=== PATIENT | female | born 1995 | race Caucasian/White ===

== ENCOUNTER 2021-03-28 12:48 | Outpatient (CLI) | payer BC ==
[2021-03-29 01:51] LABS: SARS-CoV-2 PCR by NAA Not Detected (NotDetected)
== END 2021-03-28 12:49 | disposition home or self-care (01) ==
LOC: CSHLAB 12:48
PROVIDERS: ATTEND Advanced Practice Midwife
DX: Z20.822 Contact with and (suspected) exposure to COVID-19 (principal)
CPT/HCPCS: 87635; U0003; U0005

== ENCOUNTER 2021-04-01 19:15 | Inpatient (IN) | payer BC ==
[~2021-04-01 19:15] MED LIST: Bupivacaine 0.25% HCL 30 ML VIAL ONE
[2021-04-01] MEDS: Lactated Ringer's 1,000 ML IV SCH (22:45)
[2021-04-01] MEDS ORDERED: hydrALAZINE 20 MG/ML VIAL SLOW IVP PRN (23:06)
[2021-04-01] MEDS ORDERED: Misoprostol 200 MCG TAB PR PRN (23:06)
[2021-04-01] MEDS ORDERED: Butorphanol Tartrate 1 MG/ML VIAL SLOW IVP PRN (23:06)
[2021-04-01] MEDS ORDERED: Methylergonovine 0.2 MG/ML VIAL IM PRN (23:06)
[2021-04-01] MEDS ORDERED: Ibuprofen 800 MG TAB PO PRN (23:06)
[2021-04-01] MEDS ORDERED: HYDROcodone/Acetaminophen 5/325 mg Tablet PO PRN ×2 (23:06)
[2021-04-01] MEDS ORDERED: Ondansetron PF 4 MG/2 ML Vial IVP PRN (23:06)
[2021-04-01] MEDS ORDERED: Lidocaine 1% (PF) 30 ML VIAL SC PRN (23:06)
[2021-04-01] MEDS ORDERED: Promethazine HCl 25 MG/ML VIAL IM PRN (23:06)
[2021-04-01] MEDS: Misoprostol 100 MCG TAB VAG SCH (23:36)
[2021-04-01] MEDS ORDERED: Misoprostol 100 MCG TAB ONE (23:37)
[2021-04-01] MEDS ORDERED: NS w/ Oxytocin 30 units 500 ML IV PRN (23:39)
[2021-04-01 23:41] LABS: Hemoglobin 12.4 g/dL (12.0-15.5); Mean Corpuscular Hemoglobin 29.2 pg (27.0-33.0); Mean Corpuscular Volume 88.7 fl (81.6-98.3); Mean Platelet Volume 10.9 fl (7.4-10.4); Platelet Count 202 10x3/uL (150-450); RBC Distribution Width 13.2 % (11.5-14.5); Red Blood Cell (RBC) Count 4.24 10x6/uL (3.90-5.03); White Blood Cell (WBC) Count 10.1 10x3/uL (3.5-10.5)
[2021-04-02 00:12] LABS: Hep B Surf Ag Non-Reactive S/CO (NonReactive); Syphilis Antibody Nonreactive (Nonreactive); Syphilis Antibody Index 0.02 S/CO (<1.00 Non-Reactive)
[2021-04-02 00:17] VITALS: BMI 39.3
[2021-04-02 00:38] LABS: HBSAg Index 0.12 S/CO (0-0.99)
[2021-04-02] MEDS: Misoprostol 100 MCG TAB VAG SCH ×2 (02:47→21:19)
[2021-04-02] MEDS ORDERED: Misoprostol 100 MCG TAB PO SCH (05:50)
[2021-04-02] MEDS ORDERED: Fentanyl 4 mcg/Bup 0.1% Cadd 100 ML ONE (08:04)
[2021-04-02] MEDS: Lactated Ringer's 1,000 ML IV SCH ×2 (09:00→10:44)
[2021-04-02] MEDS ORDERED: Acetaminophen 325 MG TAB PO PRN (09:50)
[2021-04-02] MEDS ORDERED: ePHEDrine 50 MG/ML VIAL SLOW IVP PRN (09:50)
[2021-04-02] MEDS ORDERED: Naloxone HCl 0.4 mg/ml Vial IVP PRN ×2 (09:50)
[2021-04-02] MEDS ORDERED: diphenhydrAMINE 50 MG/ML VIAL IVP PRN (09:50)
[2021-04-02] MEDS ORDERED: Promethazine HCl 25 MG/ML VIAL IM PRN (09:50)
[2021-04-02] MEDS ORDERED: Lactated Ringer's 500 ML IV PRN (09:50)
[2021-04-02] MEDS ORDERED: Ondansetron PF 4 MG/2 ML Vial IVP PRN ×2 (09:50→22:57)
[2021-04-02] MEDS ORDERED: Eucerin (Mineral Oil/Petrolatum,White) 30 gm Jar TOP PRN (09:50)
[2021-04-02] MEDS ORDERED: Communication Order-Pharmacy FS SCH (10:00)
[2021-04-02] MEDS ORDERED: Fentanyl 4 mcg/Bupivacaine 0.1% Cassette 100 ML EPIDURAL SCH (10:00)
[2021-04-02] MEDS ORDERED: NS w/ Oxytocin 30 units 500 ML IVPB SCH (10:45)
[2021-04-02] MEDS ORDERED: Benzocaine-Menthol 82.5 ML CAN TOP PRN (22:57)
[2021-04-02] MEDS ORDERED: Misoprostol 200 MCG TAB VAG PRN (22:57)
[2021-04-02] MEDS ORDERED: Bisacodyl 10 MG SUPP PR PRN (22:57)
[2021-04-02] MEDS ORDERED: hydrALAZINE 20 MG/ML VIAL SLOW IVP PRN (22:57)
[2021-04-02] MEDS ORDERED: Milk Of Magnesia 30 ML UDCUP PO PRN (22:57)
[2021-04-02] MEDS ORDERED: Lanolin Ointment 7 GM TUBE TOP PRN (22:57)
[2021-04-02] MEDS ORDERED: HYDROcodone/Acetaminophen 5/325 mg Tablet PO PRN ×2 (22:57)
[2021-04-02] MEDS ORDERED: NS / Oxytocin 40 units/1000ml 1,000 ML IV SCH (22:57)
[2021-04-03] MEDS: Ibuprofen 800 MG TAB PO SCH ×3 (05:29→22:29)
[2021-04-03] MEDS ORDERED: Adacel (T-DAP) 0.5 ML SYRINGE IM ONE (09:00)
[2021-04-03] MEDS: Docusate Calcium (SURFAK) 240 MG CAP PO SCH ×2 (09:18→22:29)
[2021-04-03] MEDS: Prenatal Vitamin 1 TAB PO SCH (09:18)
[2021-04-03] MEDS: Ferrous Sulfate 325 MG TAB PO SCH ×2 (09:19→18:00)
[2021-04-04] MEDS: Ibuprofen 800 MG TAB PO SCH (05:51)
[2021-04-04 07:49] VITALS: BP 108/65; TEMP 98
[2021-04-04] MEDS: Ferrous Sulfate 325 MG TAB PO SCH (07:50)
[2021-04-04] MEDS: Prenatal Vitamin 1 TAB PO SCH (08:53)
[2021-04-04] MEDS: Docusate Calcium (SURFAK) 240 MG CAP PO SCH (08:53)
== END 2021-04-04 10:49 | disposition home or self-care (01) | DRG 807 ==
LOC: CSHLD 22:20 → CSHPP 04-02 22:35
PROVIDERS: ADMIT Obstetrics & Gynecology; ATTEND Obstetrics & Gynecology
PROC: 10E0XZZ Delivery of Products of Conception, External Approach (ICD-10-PCS; principal; 2021-04-02)
PROC: 3E0P7VZ Introduction of Hormone into Female Reproductive, Via Natural or Artificial Opening (ICD-10-PCS; 2021-04-02)
DX: O69.81X0 Labor and delivery complicated by cord around neck, without compression, not applicable or unspecified (principal); Z37.0 Single live birth; Z20.822 Contact with and (suspected) exposure to COVID-19; Z3A.39 39 weeks gestation of pregnancy; Z88.0 Allergy status to penicillin; O70.1 Second degree perineal laceration during delivery
CPT/HCPCS: 36415; 51702; 82805; 85027; 86780; 86850; 86900; 86901; 87340; J2405; J2590; S0020